=== PATIENT | male | born 1950 | race Hispanic/Latino ===

== ENCOUNTER 2023-05-30 16:30 | Emergency (ER) | payer SELFPAY ==
[2023-05-30 16:45] VITALS: BP 133/78; PULSE 87; RESP 16; TEMP 36.3; O2SAT 100
--- NOTE | 2023-05-30 16:57 | ED.GENADULT ---
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 He reports he is diabetic and takes 50 mg of metformin in 5 mg of glyburide 3 times a day. He reports his last blood sugar was the day before yesterday and was 180. Has been out of his medications for 3 days. Is scheduled to go back to [place] on June 28 and is needing a refill told that point in time. Related Data Allergies Allergy/AdvReac Type Severity Reaction Status Date / Time No Known Allergies Allergy Verified 05/30/23 17:09 Review of Systems Review of Systems: Pertinent positives per HPI. Patient denies any fever, chills, rash, headache, visual changes, dizziness, cough, runny nose, sore throat, shortness of breath, chest pain, palpitations, nausea, vomiting, diarrhea, constipation, abdominal pain, or any urinary issues. PMFSH Comments At the time of my signature, I reviewed and agree with the nursing past medical, surgical, social, and family history. There is no relevant family history pertinent to the patient complaint. Exam Narrative: General: Well-developed, well nourished, in no apparent distress Head: Normocephalic, atraumatic Eyes: Pupils equally round and reactive to light bilaterally, EOM intact, sclera and conjunctive clear, no discharge, lids normal Ears: TMs intact and clear, ear canals clear, no drainage, grossly hearing normal. Nose: Nares patent, no discharge, no inflammation, no sinus tenderness. Mouth: Oropharynx without lesions or masses, good dentition, MMM. Neck: Supple, trachea midline, no enlargement of anterior or posterior cervical nodes, no thyroid masses or goiter palpable. Cardio: Regular rate and rhythm, s1 and s2 normal, no murmur appreciated. Resp: Clear to auscultation bilaterally anteriorly and posteriorly, no rhonchi, rales, wheezing or rubs Course Course Emergency Course: Portions of this record may have been created with voice recognition software. Level of Care: Express Care Visit Vital Signs Vital signs: Vital Signs Temperature 36.3 C L 05/30/23 16:45 Pulse Rate 87 05/30/23 16:45 Respiratory Rate 16 05/30/23 16:45 Blood Pressure 133/78 05/30/23 16:45 Pulse Oximetry 100 05/30/23 16:45 Oxygen Delivery Room Air 05/30/23 16:45 Temperature 36.3 C L 05/30/23 16:45 Pulse Rate 87 05/30/23 16:45 Respiratory Rate 16 05/30/23 16:45 Blood Pressure 133/78 05/30/23 16:45 Pulse Oximetry 100 05/30/23 16:45 Oxygen Delivery Room Air 05/30/23 16:45 Vital signs reviewed Medical Decision Making MDM Narrative Medical decision making narrative: At the time of visit patient is resting comfortably on the exam table. Discussed change in his medication as you night stasis not make [address] the patient on for 500 mg of metformin and 5 mg of glyburide once daily. Recommend he check his blood sugar of least 1 time a day. Red flag symptoms were reviewed regarding hypoglycemia. Supportive measures were discussed with the patient and family they voiced understanding the discharge instructions and agreed to the treatment plan. Differential Diagnosis Differential Diagnosis: Type 2 diabetes, encounter for medication refill Vital Signs Vital Signs: Vital Signs Temperature 36.3 C L 05/30/23 16:45 Pulse Rate 87 05/30/23 16:45 Respiratory Rate 16 05/30/23 16:45 Blood Pressure 133/78 05/30/23 16:45 Pulse Oximetry 100 05/30/23 16:45 Oxygen Delivery Room Air 05/30/23 16:45 Temperature 36.3 C L 05/30/23 16:45 Pulse Rate 87 05/30/23 16:45 Respiratory Rate 16 05/30/23 16:45 Blood Pressure 133/78 05/30/23 16:45 Pulse Oxim
== END 2023-05-30 17:18 | disposition home or self-care (01) ==
PROVIDERS: Emergency Provider Nurse Practitioner Family
DX: E11.9 Type 2 diabetes mellitus without complications (principal)
CPT/HCPCS: 99202; G0463